=== PATIENT | male | born 1980 ===

== ENCOUNTER 2018-11-08 12:08 | Outpatient (CLI) | payer OTHER ==
[~2018-11-08] VITALS: Ht 152.4 cm; Wt 106.6 kg
== END 2018-11-08 12:25 | disposition home or self-care (01) ==
LOC: OFIC 805 12:08
DX: J31.2 Chronic pharyngitis (principal); R06.83 Snoring; G47.33 Obstructive sleep apnea (adult) (pediatric); M26.69 Other specified disorders of temporomandibular joint; H69.83 Other specified disorders of Eustachian tube, bilateral; J31.0 Chronic rhinitis